=== PATIENT | female | born 1985 | race American Indian/Alaskan Native ===

== ENCOUNTER 2020-10-01 19:22 | Emergency (ER) | payer SELFPAY ==
[2020-10-01 21:26] VITALS: BP 148/88
[2020-10-01 22:50] LABS: Bilirubin,Urine NEG (Negative); Blood,Urine NEG (Negative); Color,Urine Yellow (Yellow); Mucus,Urine 2+ /HPF; Protein,Urine <15 mg/dL mg/dL (Negative)
[2020-10-01 22:51] LABS: HCG Qualitative,Urine Negative (Negative)
== END 2020-10-04 00:27 | disposition home or self-care (01) ==
LOC: ED 19:22
DX: R10.31 Right lower quadrant pain (principal); Z53.21 Procedure and treatment not carried out due to patient leaving prior to being seen by health care provider
CPT/HCPCS: 81001; 81025